=== PATIENT | male | born 1980 | race Caucasian/White ===

== ENCOUNTER 2025-01-16 09:13 | Day surgery (SDC) | payer OTHER ==
[2025-01-16] MEDS ORDERED: Depo-Medrol 40 MG/ML IM ONE (09:14)
[2025-01-16] MEDS ORDERED: BUPIVACAINE 0.5% VIAL IJ ONE (09:14)
[2025-01-16] MEDS ORDERED: propofoL IV ONE (11:13)
--- NOTE | 2025-01-16 12:52 | XRAY ---
Indication: Bilateral SI joint injection. Intraoperative fluoroscopy provided for 23 seconds. 4 digital spot images submitted for interpretation demonstrates posterior needle tips projecting over expected left and right SI joints. Small amount of contrast injected for needle tip placement. Correlate with intraoperative findings/report.
--- NOTE | 2025-01-16 12:54 | XRAY ---
23 seconds of fluoroscopy was used in surgery for a bilateral sacroiliac joint injection.
== END 2025-01-16 11:48 | disposition home or self-care (01) ==
LOC: SDC-PAIN 09:13
PROVIDERS: ATTEND Psychiatry & Neurology Pain Medicine
DX: M46.1 Sacroiliitis, not elsewhere classified (principal)
CPT/HCPCS: 27096; 72202; 77002; J2704; Q9966